=== PATIENT | male | born 1955 | race Caucasian/White ===

== ENCOUNTER 2021-09-14 15:42 | Outpatient (CLI) | payer MEDICARE | END 2021-09-14 15:43 | disposition home or self-care (01) | LOC: NAV RAD 15:42 | PROVIDERS: ATTEND Nurse Practitioner Family | DX: M54.42 Lumbago with sciatica, left side (principal); M47.816 Spondylosis without myelopathy or radiculopathy, lumbar region | CPT/HCPCS: 72100 ==

== ENCOUNTER 2022-09-02 10:00 | Outpatient (CLI) | payer MEDICARE | END 2022-09-02 10:01 | disposition home or self-care (01) | LOC: NAV RAD 10:00 | PROVIDERS: ATTEND Neurological Surgery | DX: M54.50 Low back pain, unspecified (principal); M47.816 Spondylosis without myelopathy or radiculopathy, lumbar region; M43.16 Spondylolisthesis, lumbar region; Z98.890 Other specified postprocedural states | CPT/HCPCS: 72100 ==